=== PATIENT | female | born 1965 | race Caucasian/White ===

== ENCOUNTER 2019-01-23 10:36 | Day surgery (SDC) | payer OTHER, BC ==
[2019-01-23] MEDS ORDERED: FENTAnyl 50 MCG/ML VIAL (13:09)
[2019-01-23] MEDS ORDERED: MIDAZOLAM 1 MG/ML 2 ML INJ ×2 (13:09→13:10)
== END 2019-01-23 14:03 | disposition home or self-care (01) ==
LOC: GIL 10:36
DX: Z12.11 Encounter for screening for malignant neoplasm of colon (principal); K64.4 Residual hemorrhoidal skin tags
CPT/HCPCS: 45378